=== PATIENT | male | born 1960 | race Caucasian/White ===

== ENCOUNTER 2021-12-30 11:07 | Observation (INO) ==
[2021-12-30] MEDS ORDERED: Iopamidol - 370 500 ML MLS IVP ONE (11:38)
[2021-12-30 12:01] LABS: Basophils % 0.6 %; Hemoglobin 13.3 g/dL (12.9-16.9)
[2021-12-30 12:03] LABS: Basophils # 0.1 K/mcL (0.0-0.2); Eosinophils # 0.1 K/mcL (0.0-0.6); Eosinophils % 0.7 %; Hematocrit 36.1 % (37.5-50.1); Immature Granulocytes % 0.5 % (0-4); Lymphocytes # 1.2 K/mcL (0.6-4.6); Lymphocytes % 12.5 %; Mean Corpuscular HGB Conc 36.8 g/dL (31.6-35.5); Mean Corpuscular Hemoglobin 30.6 pg (28.0-33.3); Mean Platelet Volume 11.5 fL (9.4-12.4); Monocytes # 0.9 K/mcL (0.0-1.3); Neutrophils # 7.4 K/mcL (1.6-8.9); Platelet Count 332 K/mcL (140-400); Red Blood Count 4.35 M/mcL (4.19-5.50); Red Cell Distribution Width 18.1 % (11.5-14.5); Segmented Neutrophils % 76.7 %; White Blood Count 9.7 K/mcL (4.3-11.1)
[2021-12-30 12:11] LABS: INR 1.1; Prothrombin Time 11.8 Seconds (9.4-12.1)
[2021-12-30 12:13] LABS: Activated Partial Thrombo Time 35.2 Seconds (26.0-36.0)
[2021-12-30 12:25] LABS: Anisocytosis 1+ (Not Present); Target Cells 1+ (Not Present)
[2021-12-30 13:01] LABS: Alanine Aminotransferase 86 Units/L (7-52); Albumin 4.3 g/dL (3.5-5.7); Albumin/Globulin Ratio 1.5 (1.1-2.2); Alkaline Phosphatase 375 Units/L (34-104); Aspartate Amino Transferase 82 Units/L (13-39); BUN/Creatinine Ratio 18 (6-26); Bilirubin,Total > 30.0 mg/dL (0.3-1.0); Blood Urea Nitrogen 16 mg/dL (8-23); Carbon Dioxide 27 mEq/L (23-29); Chloride 99 mEq/L (98-107); Globulin 2.8 g/dL (2.4-3.5); Glucose 95 mg/dL (70-105); Lipase 108 Units/L (11-82); Osmolality,Calculated 277 (280-300); Potassium 4.1 mEq/L (3.5-5.1); Sodium 133 mEq/L (136-145); Total Protein 7.1 g/dL (6.4-8.9); eGFR For African Americans > 60 (> 60); eGFR For Non-African Americans > 60 (> 60)
[2021-12-30] MEDS ORDERED: Gadolinium Contrast Agent (WT Based) IV PRN (15:20)
[2021-12-30] MEDS ORDERED: Naloxone 0.4 MG/ML INJ IVP PRN (15:39)
[2021-12-30] MEDS ORDERED: Ondansetron ODT 4 MG TAB.RAPDIS SL PRN (15:39)
[2021-12-30] MEDS ORDERED: Melatonin 3 MG TABLET PO PRN (15:39)
[2021-12-30] MEDS ORDERED: Dextrose Gel 15 GM/37.5 ML TUBE PO PRN ×2 (15:49)
[2021-12-30] MEDS ORDERED: *HR* HYDROcodone/Acet 5/325 mg TABLET PO PRN (16:22)
[2021-12-30] MEDS ORDERED: Acetaminophen 325 MG TABLET PO PRN (16:22)
[2021-12-30 16:49] LABS: Bilirubin,Direct 15.6 mg/dL (0.0-0.2); Magnesium 2.1 mg/dL (1.6-2.6); Phosphorous 2.9 mg/dL (2.7-4.5)
[2021-12-30] MEDS: 0.9 % Sodium Chloride 1,000 ML IVC SCH (18:31)
[2021-12-30 19:27] LABS: Bacteria,Urine Few per hpf (None-Few); Bilirubin,Urine Large (Negative); Blood,Urine Small (Negative); Clarity,Urine Clear (Clear); Color,Urine Dark-Yellow (Yellow); Glucose,Urine (UA) Normal (Normal); Ketones,Urine Negative (Negative); Leukocyte Esterase,Urine Negative (Negative); Mucus,Urine Few per lpf (None-Few); Nitrite,Urine Negative (Negative); Protein,Urine 30 mg/dL (Neg-Trace); Specific Gravity,Urine > 1.030 (1.010-1.025); Urobilinogen,Urine Normal (Normal); WBC,Urine 15-30 per hpf (0-3)
[2021-12-30] MEDS: *HR* Heparin 5,000 UNIT/ML VIAL SQ SCH (21:11)
[2021-12-31 03:54] LABS: BUN/Creatinine Ratio 20 (6-26); Blood Urea Nitrogen 17 mg/dL (8-23); Calcium 8.8 mg/dL (8.6-10.3); Carbon Dioxide 24 mEq/L (23-29); Chloride 100 mEq/L (98-107); Chol/HDL Ratio 29.2 (0-4.9); Glucose 85 mg/dL (70-105); Osmolality,Calculated 281 (280-300); Potassium 3.6 mEq/L (3.5-5.1); Sodium 135 mEq/L (136-145); eGFR For African Americans > 60 (> 60); eGFR For Non-African Americans > 60 (> 60)
[2021-12-31 03:55] LABS: Estimated Average Glucose 103 mg/dl; Hemoglobin A1C 5.2 %
[2021-12-31 03:59] LABS: Basophils # 0.1 K/mcL (0.0-0.2); Basophils % 0.6 %; Eosinophils # 0.2 K/mcL (0.0-0.6); Eosinophils % 2.1 %; Hemoglobin 11.6 g/dL (12.9-16.9); Immature Granulocytes % 0.3 % (0-4); Lymphocytes # 1.5 K/mcL (0.6-4.6); Lymphocytes % 15.2 %; Mean Corpuscular HGB Conc 37.4 g/dL (31.6-35.5); Mean Corpuscular Hemoglobin 30.5 pg (28.0-33.3); Mean Corpuscular Volume 81.6 fL (83.0-100.0); Mean Platelet Volume 12.4 fL (9.4-12.4); Monocytes # 1.1 K/mcL (0.0-1.3); Monocytes % 10.9 %; Neutrophils # 6.9 K/mcL (1.6-8.9); Platelet Count 290 K/mcL (140-400); Red Cell Distribution Width 17.8 % (11.5-14.5); Segmented Neutrophils % 70.9 %; White Blood Count 9.7 K/mcL (4.3-11.1)
[2021-12-31] MEDS: 0.9 % Sodium Chloride 1,000 ML IVC SCH (05:12)
[2021-12-31] MEDS: *HR* Heparin 5,000 UNIT/ML VIAL SQ SCH ×3 (05:14→22:57)
[2021-12-31 10:29] LABS: Alanine Aminotransferase 69 Units/L (7-52); Albumin 3.6 g/dL (3.5-5.7); Albumin/Globulin Ratio 1.6 (1.1-2.2); Alkaline Phosphatase 314 Units/L (34-104); Aspartate Amino Transferase 64 Units/L (13-39); Bilirubin,Direct 13.5 mg/dL (0.0-0.2); Bilirubin,Indirect 12.9 mg/dL (0.0-1.0); Bilirubin,Total 26.4 mg/dL (0.3-1.0); Globulin 2.3 g/dL (2.4-3.5); Total Protein 5.9 g/dL (6.4-8.9)
[2021-12-31] MEDS: Ringers Solution, Lactated 1,000 ML IVC SCH ×2 (13:18→18:08)
[2021-12-31] MEDS ORDERED: *HR* FentaNYL (PF) 100 MCG/2 ML VIAL ONE (13:35)
[2021-12-31] MEDS ORDERED: *HR* Propofol 200 MG/20 ML VIAL IVP ONE ×2 (13:36→16:43)
[2021-12-31] MEDS ORDERED: Lidocaine -MPF 2% 2 ML VIAL ONE (13:36)
[2021-12-31] MEDS ORDERED: *HR* Succinylcholine 200 MG/10 ML VIAL IVP ONE (13:37)
[2021-12-31] MEDS ORDERED: Ondansetron 4 MG/2 ML VIAL ONE (13:38)
[2021-12-31] MEDS ORDERED: Lidocaine HCL 4 ML Topical Solution (Laryng-O-Jet Kit Sterile Pak) TP ONE (13:39)
[2021-12-31] MEDS ORDERED: Indomethacin 50 MG SUPP.RECT RC ONE (16:12)
[2022-01-01] MEDS: *HR* Heparin 5,000 UNIT/ML VIAL SQ SCH (05:53)
[2022-01-01] MEDS: Ringers Solution, Lactated 1,000 ML IVC SCH ×2 (08:28→08:30)
[2022-01-01 08:34] VITALS: BP 132/65; PULSE 65; TEMP 97.9; O2SAT 97
[2022-01-01] MEDS ORDERED: lisinopriL 10 MG TABLET PO SCH (09:00)
[2022-01-01 09:23] LABS: Alanine Aminotransferase 60 Units/L (7-52); Albumin 3.3 g/dL (3.5-5.7); Albumin/Globulin Ratio 1.3 (1.1-2.2); Alkaline Phosphatase 328 Units/L (34-104); Aspartate Amino Transferase 55 Units/L (13-39); BUN/Creatinine Ratio 13 (6-26); Bilirubin,Total 25.9 mg/dL (0.3-1.0); Blood Urea Nitrogen 13 mg/dL (8-23); Calcium 9.1 mg/dL (8.6-10.3); Carbon Dioxide 28 mEq/L (23-29); Chloride 100 mEq/L (98-107); Globulin 2.5 g/dL (2.4-3.5); Glucose 89 mg/dL (70-105); Osmolality,Calculated 280 (280-300); Potassium 3.6 mEq/L (3.5-5.1); Sodium 135 mEq/L (136-145); Total Protein 5.8 g/dL (6.4-8.9); eGFR For African Americans > 60 (> 60); eGFR For Non-African Americans > 60 (> 60)
== END 2022-01-01 11:20 | disposition home or self-care (01) ==
LOC: EMEROOARM 11:07 → 3ANU 11:07 → SUATTDRO 16:19 → 3ANU 17:20
PROVIDERS: ADMIT Internal Medicine; ATTEND Student in an Organized Health Care Education/Training Program
PROC: ENDOEUS (2021-12-31 11:20)

== ENCOUNTER 2022-05-24 12:59 | Inpatient (IN) ==
[2022-05-24 14:04] LABS: Bacteria,Urine Few per hpf (None-Few); Bilirubin,Urine Negative (Negative); Blood,Urine Moderate (Negative); Clarity,Urine Clear (Clear); Color,Urine Yellow (Yellow); Glucose,Urine (UA) Normal (Normal); Ketones,Urine Negative (Negative); Leukocyte Esterase,Urine Negative (Negative); Mucus,Urine Few per lpf (None-Few); Nitrite,Urine Negative (Negative); PH,Urine 6.5 pH Units (5.0-8.0); Protein,Urine 50 mg/dL (Neg-Trace); RBC,Urine 30-50 per hpf (0-3); Red Cell Distribution Width 14.8 % (11.5-14.5); Specific Gravity,Urine 1.023 (1.010-1.025); Squamous Epithelial Cell,Urine Few per hpf (None-Few); Urobilinogen,Urine >=8.0 mg/dL (Normal); WBC,Urine 0-3 per hpf (0-3)
[2022-05-24 14:06] LABS: Hemoglobin 12.4 g/dL (12.9-16.9); Mean Corpuscular HGB Conc 32.6 g/dL (31.6-35.5); Mean Corpuscular Hemoglobin 28.8 pg (28.0-33.3); Mean Corpuscular Volume 88.2 fL (83.0-100.0); Mean Platelet Volume 10.2 fL (9.4-12.4); Platelet Count 375 K/mcL (140-400); Red Blood Count 4.31 M/mcL (4.19-5.50); White Blood Count 25.3 K/mcL (4.3-11.1)
[2022-05-24 14:37] LABS: Lymphocytes # 1.8 K/mcL (0.6-4.6); Monocytes # 0.8 K/mcL (0.0-1.3); Neutrophils # 22.8 K/mcL (1.6-8.9); Platelet Estimate Normal (Normal); Toxic Granulation Present (Not Present)
[2022-05-24 15:01] LABS: Alanine Aminotransferase 14 Units/L (7-52); Albumin 3.6 g/dL (3.5-5.7); Albumin/Globulin Ratio 0.9 (1.1-2.2); Alkaline Phosphatase 117 Units/L (34-104); Amylase 758 Units/L (29-103); Aspartate Amino Transferase 14 Units/L (13-39); BUN/Creatinine Ratio 16 (6-26); Bilirubin,Direct 0.3 mg/dL (0.0-0.2); Bilirubin,Indirect 0.6 mg/dL (0.0-1.0); Bilirubin,Total 0.9 mg/dL (0.3-1.0); Blood Urea Nitrogen 13 mg/dL (8-23); Calcium 9.2 mg/dL (8.6-10.3); Carbon Dioxide 25 mEq/L (23-29); Chloride 95 mEq/L (98-107); Globulin 4.2 g/dL (2.4-3.5); Glucose 146 mg/dL (70-105); Lipase > 1800 Units/L (11-82); Osmolality,Calculated 279 (280-300); Potassium 4.1 mEq/L (3.5-5.1); Sodium 133 mEq/L (136-145); Total Protein 7.8 g/dL (6.4-8.9)
[2022-05-24] MEDS ORDERED: Iopamidol - 370 500 ML MLS IVP ONE (16:44)
[2022-05-24] MEDS ORDERED: Morphine Sulfate 2 MG/ML SYRINGE IVP ONE (16:45)
[2022-05-24] MEDS ORDERED: Ondansetron 4 MG/2 ML VIAL IVP ONE (16:45)
[2022-05-24] MEDS ORDERED: 0.9 % Sodium Chloride 1,000 ML IVC ONE (16:46)
[2022-05-24] MEDS ORDERED: Ketorolac 30 MG/ML VIAL IVP ONE (17:56)
[2022-05-24] MEDS ORDERED: *HR* HYDROmorphone (PF) 1 MG/ML SYRINGE IVP ONE (17:57)
[2022-05-24] MEDS ORDERED: Ondansetron 4 MG/2 ML VIAL IVP PRN (20:40)
[2022-05-24] MEDS ORDERED: Melatonin 3 MG TABLET PO PRN (20:40)
[2022-05-24] MEDS ORDERED: Naloxone 0.4 MG/ML INJ IVP PRN (20:40)
[2022-05-24] MEDS: Ringers Solution, Lactated 1,000 ML IVC SCH (21:39)
[2022-05-24] MEDS: Piperacillin/Tazobactam 3.375 GM in 0.9 % Sodium Chloride Mini Bag 100 ML IVPB SCH (21:45)
[2022-05-25] MEDS: Ringers Solution, Lactated 1,000 ML IVC SCH (03:36)
[2022-05-25] MEDS ORDERED: *HR* HYDROmorphone (PF) 1 MG/ML SYRINGE IVP ONE (04:27)
[2022-05-25] MEDS: *HR* Heparin 5,000 UNIT/ML VIAL SQ SCH ×2 (04:36→17:31)
[2022-05-25 05:05] LABS: Basophils % 0.2 %; Eosinophils % 0.1 %; Hematocrit 34.3 % (37.5-50.1); Hemoglobin 11.3 g/dL (12.9-16.9); Immature Granulocytes % 0.6 % (0-4); Lymphocytes # 2.4 K/mcL (0.6-4.6); Lymphocytes % 10.2 %; Mean Corpuscular HGB Conc 32.9 g/dL (31.6-35.5); Mean Corpuscular Volume 88.2 fL (83.0-100.0); Mean Platelet Volume 10.5 fL (9.4-12.4); Monocytes # 2.1 K/mcL (0.0-1.3); Monocytes % 9.2 %; Neutrophils # 18.5 K/mcL (1.6-8.9); Platelet Count 357 K/mcL (140-400); Red Blood Count 3.89 M/mcL (4.19-5.50); Red Cell Distribution Width 15.1 % (11.5-14.5); Segmented Neutrophils % 79.7 %; White Blood Count 23.2 K/mcL (4.3-11.1)
[2022-05-25 05:26] LABS: Alanine Aminotransferase 11 Units/L (7-52); Albumin 3.1 g/dL (3.5-5.7); Albumin/Globulin Ratio 0.9 (1.1-2.2); Alkaline Phosphatase 91 Units/L (34-104); Aspartate Amino Transferase 10 Units/L (13-39); BUN/Creatinine Ratio 16 (6-26); Bilirubin,Total 0.7 mg/dL (0.3-1.0); Blood Urea Nitrogen 12 mg/dL (8-23); Calcium 8.5 mg/dL (8.6-10.3); Carbon Dioxide 28 mEq/L (23-29); Chloride 101 mEq/L (98-107); Globulin 3.4 g/dL (2.4-3.5); Glucose 99 mg/dL (70-105); Osmolality,Calculated 284 (280-300); Phosphorous 3.2 mg/dL (2.7-4.5); Potassium 3.6 mEq/L (3.5-5.1); Sodium 137 mEq/L (136-145); Total Protein 6.5 g/dL (6.4-8.9)
[2022-05-25] MEDS ORDERED: 0.9 % Sodium Chloride 1,000 ML IVC SCH (08:00)
[2022-05-25] MEDS: Piperacillin/Tazobactam 3.375 GM in 0.9 % Sodium Chloride Mini Bag 100 ML IVPB SCH ×3 (08:34→23:18)
[2022-05-25] MEDS: 0.9 % Sodium Chloride 1,000 ML IVC SCH ×2 (16:42→23:20)
[2022-05-25] MEDS: Mirtazapine 15 MG TABLET PO SCH (21:56)
[2022-05-26] MEDS ORDERED: Ibuprofen 600 MG TABLET PO ONE (01:24)
[2022-05-26 02:07] LABS: Immature Granulocytes % 0.8 % (0-4)
[2022-05-26 02:08] LABS: Basophils % 0.1 %; Chol/HDL Ratio 5.1 (0-4.9); Lymphocytes # 1.6 K/mcL (0.6-4.6); Lymphocytes % 5.9 %; Mean Corpuscular HGB Conc 33.3 g/dL (31.6-35.5); Mean Corpuscular Hemoglobin 28.3 pg (28.0-33.3); Mean Corpuscular Volume 84.9 fL (83.0-100.0); Monocytes % 7.3 %; Neutrophils # 23.8 K/mcL (1.6-8.9); Platelet Count 346 K/mcL (140-400); Red Blood Count 3.18 M/mcL (4.19-5.50); Segmented Neutrophils % 85.9 %; White Blood Count 27.7 K/mcL (4.3-11.1)
[2022-05-26 02:10] LABS: Alanine Aminotransferase 9 Units/L (7-52); Albumin 2.6 g/dL (3.5-5.7); Albumin/Globulin Ratio 0.9 (1.1-2.2); Alkaline Phosphatase 79 Units/L (34-104); Aspartate Amino Transferase 9 Units/L (13-39); BUN/Creatinine Ratio 18 (6-26); Bilirubin,Total 0.9 mg/dL (0.3-1.0); Blood Urea Nitrogen 12 mg/dL (8-23); Calcium 7.7 mg/dL (8.6-10.3); Carbon Dioxide 26 mEq/L (23-29); Chloride 101 mEq/L (98-107); Glucose 92 mg/dL (70-105); Magnesium 1.6 mg/dL (1.6-2.6); Osmolality,Calculated 277 (280-300); Phosphorous 3.4 mg/dL (2.7-4.5); Sodium 134 mEq/L (136-145); Total Protein 5.6 g/dL (6.4-8.9)
[2022-05-26] MEDS ORDERED: Morphine Sulfate 2 MG/ML SYRINGE IVP ONE (06:06)
[2022-05-26] MEDS: 0.9 % Sodium Chloride 1,000 ML IVC SCH ×3 (06:24→14:56)
[2022-05-26] MEDS: *HR* Heparin 5,000 UNIT/ML VIAL SQ SCH (06:31)
[2022-05-26] MEDS: Piperacillin/Tazobactam 3.375 GM in 0.9 % Sodium Chloride Mini Bag 100 ML IVPB SCH ×2 (09:21→14:55)
[2022-05-26] MEDS ORDERED: 0.9 % Sodium Chloride 500 ML ONE (13:07)
[2022-05-26] MEDS ORDERED: Lidocaine/EPI 1:100k 1% 50 ML VIAL ONE (13:07)
[2022-05-26] MEDS ORDERED: Heparin 1,000 UNITS/500 mL 500 ML ONE (13:07)
[2022-05-26] MEDS ORDERED: Iopamidol - 370 500 ML MLS IVP ONE (13:09)
[2022-05-26] MEDS: Ringers Solution, Lactated 1,000 ML IVC SCH (14:14)
[2022-05-26] MEDS ORDERED: Iopamidol - 300 50 ML VIAL IVP ONE ×2 (14:16→14:17)
[2022-05-26] MEDS: Mirtazapine 15 MG TABLET PO SCH (19:35)
[2022-05-27] MEDS: Piperacillin/Tazobactam 3.375 GM in 0.9 % Sodium Chloride Mini Bag 100 ML IVPB SCH ×3 (01:04→20:10)
[2022-05-27] MEDS: 0.9 % Sodium Chloride 1,000 ML IVC SCH ×2 (04:58→16:52)
[2022-05-27 05:09] LABS: Mean Platelet Volume 10.4 fL (9.4-12.4)
[2022-05-27 05:10] LABS: Hematocrit 23.1 % (37.5-50.1); Hemoglobin 7.9 g/dL (12.9-16.9); Lymphocytes # 1.5 K/mcL (0.6-4.6); Mean Corpuscular HGB Conc 34.2 g/dL (31.6-35.5); Mean Corpuscular Hemoglobin 29.6 pg (28.0-33.3); Mean Corpuscular Volume 86.5 fL (83.0-100.0); Platelet Count 404 K/mcL (140-400); Red Blood Count 2.67 M/mcL (4.19-5.50); Red Cell Distribution Width 15.4 % (11.5-14.5)
[2022-05-27 05:13] LABS: White Blood Count 36.2 K/mcL (4.3-11.1)
[2022-05-27] MEDS: Mirtazapine 15 MG TABLET PO SCH ×2 (05:17→20:27)
[2022-05-27 05:23] LABS: BUN/Creatinine Ratio 15 (6-26); Blood Urea Nitrogen 11 mg/dL (8-23); Calcium 7.8 mg/dL (8.6-10.3); Carbon Dioxide 25 mEq/L (23-29); Chloride 102 mEq/L (98-107); Glucose 87 mg/dL (70-105); Magnesium 1.9 mg/dL (1.6-2.6); Osmolality,Calculated 277 (280-300); Phosphorous 3.4 mg/dL (2.7-4.5); Sodium 134 mEq/L (136-145)
[2022-05-27 06:00] LABS: Hypochromasia Present (Not Present); Monocytes # 2.9 K/mcL (0.0-1.3); Neutrophils # 31.9 K/mcL (1.6-8.9); Platelet Estimate Normal (Normal)
[2022-05-27] MEDS: Acetaminophen 325 MG TABLET PO PRN (11:36)
[2022-05-27 12:51] LABS: Immature Reticulocyte % 23.8 % (11.0-38.0); Retculocyte # 0.03 M/mcL (0.05-0.10); Reticulocyte % 1.2 % (1.6-2.8)
[2022-05-27 16:28] LABS: Thyroid Stimulating Hormone 2.921 mcIU/mL (0.340-5.600)
[2022-05-27 16:39] LABS: Folate 6.4 ng/mL (3.0-16.0)
[2022-05-28] MEDS: Piperacillin/Tazobactam 3.375 GM in 0.9 % Sodium Chloride Mini Bag 100 ML IVPB SCH ×4 (01:49→21:07)
[2022-05-28 02:09] LABS: BUN/Creatinine Ratio 14 (6-26); Blood Urea Nitrogen 10 mg/dL (8-23); Calcium 8.1 mg/dL (8.6-10.3); Carbon Dioxide 23 mEq/L (23-29); Chloride 103 mEq/L (98-107); Glucose 86 mg/dL (70-105); Osmolality,Calculated 278 (280-300); Potassium 3.9 mEq/L (3.5-5.1); Sodium 135 mEq/L (136-145)
[2022-05-28 02:20] LABS: Hemoglobin 7.6 g/dL (12.9-16.9); Mean Corpuscular HGB Conc 34.5 g/dL (31.6-35.5); Mean Corpuscular Hemoglobin 29.2 pg (28.0-33.3); Mean Corpuscular Volume 84.6 fL (83.0-100.0); Mean Platelet Volume 10.4 fL (9.4-12.4); Platelet Count 481 K/mcL (140-400); Red Cell Distribution Width 15.5 % (11.5-14.5)
[2022-05-28 02:36] LABS: White Blood Count 45.4 K/mcL (4.3-11.1)
[2022-05-28 03:05] LABS: Lymphocytes # 2.3 K/mcL (0.6-4.6); Monocytes # 3.2 K/mcL (0.0-1.3); Platelet Estimate Normal (Normal)
[2022-05-28] MEDS: Vancomycin 1,250 MG/262.5 ML IV.SOLN IVPB SCH ×2 (08:04→21:10)
[2022-05-28] MEDS: Acetaminophen 325 MG TABLET PO PRN (12:06)
[2022-05-28] MEDS ORDERED: Piperacillin/Tazobactam 3.375 GM in 0.9 % Sodium Chloride Mini Bag 100 ML IVPB SCH (16:00)
[2022-05-28] MEDS: Mirtazapine 15 MG TABLET PO SCH (21:16)
[2022-05-28] MEDS: 0.9 % Sodium Chloride 1,000 ML IVC SCH (21:23)
[2022-05-29] MEDS: Piperacillin/Tazobactam 3.375 GM in 0.9 % Sodium Chloride Mini Bag 100 ML IVPB SCH ×3 (05:31→20:10)
[2022-05-29 07:01] LABS: Basophils % 0.2 %; Lymphocytes % 3.2 %
[2022-05-29 07:03] LABS: Basophils # 0.1 K/mcL (0.0-0.2); Hematocrit 21.2 % (37.5-50.1); Hemoglobin 7.2 g/dL (12.9-16.9); Immature Granulocytes % 1.8 % (0-4); Lymphocytes # 1.5 K/mcL (0.6-4.6); Mean Corpuscular Hemoglobin 28.9 pg (28.0-33.3); Mean Corpuscular Volume 85.1 fL (83.0-100.0); Mean Platelet Volume 10.7 fL (9.4-12.4); Monocytes # 2.5 K/mcL (0.0-1.3); Monocytes % 5.5 %; Neutrophils # 40.5 K/mcL (1.6-8.9); Platelet Count 488 K/mcL (140-400); Red Blood Count 2.49 M/mcL (4.19-5.50); Red Cell Distribution Width 15.8 % (11.5-14.5); Segmented Neutrophils % 89.3 %
[2022-05-29 07:20] LABS: White Blood Count 45.4 K/mcL (4.3-11.1)
[2022-05-29 07:22] LABS: Calcium 7.8 mg/dL (8.6-10.3); Potassium 3.8 mEq/L (3.5-5.1)
[2022-05-29] MEDS: Vancomycin 1,250 MG/262.5 ML IV.SOLN IVPB SCH ×2 (09:44→22:21)
[2022-05-29] MEDS: 0.9 % Sodium Chloride 1,000 ML IVC SCH ×2 (13:47)
[2022-05-29 14:42] LABS: Adenovirus Not Detected (Not Detect); Bordetella Pertussis Not Detected (Not Detect); Chlamydophila pneumoniae Not Detected (Not Detect); Coronavirus 229E Not Detected (Not Detect); Coronavirus HKU1 Not Detected (Not Detect); Coronavirus NL63 Not Detected (Not Detect); Coronavirus OC43 Not Detected (Not Detect); Human Metapneumovirus Not Detected (Not Detect); Human Rhinovirus/Enterovirus Not Detected (Not Detect); Influenza A Subtype 2009 H1 Not Detected (Not Detect); Influenza B Not Detected (Not Detect); Mycoplasma pneumoniae Not Detected (Not Detect); Parainfluenza Virus 1 Not Detected (Not Detect); Parainfluenza Virus 2 Not Detected (Not Detect); Parainfluenza Virus 3 Not Detected (Not Detect); Parainfluenza Virus 4 Not Detected (Not Detect); Respiratory Syncytial Virus Not Detected (Not Detect); SARS-CoV-2 Not Detected (Not Detect)
[2022-05-29] MEDS: Sennosides/Docusate Sodium TABLET PO SCH (20:09)
[2022-05-29] MEDS: Mirtazapine 15 MG TABLET PO SCH (20:09)
[2022-05-30] MEDS: 0.9 % Sodium Chloride 1,000 ML IVC SCH ×3 (01:55→20:30)
[2022-05-30] MEDS: Piperacillin/Tazobactam 3.375 GM in 0.9 % Sodium Chloride Mini Bag 100 ML IVPB SCH ×3 (04:56→20:25)
[2022-05-30 07:50] LABS: Calcium 7.8 mg/dL (8.6-10.3); Potassium 3.8 mEq/L (3.5-5.1)
[2022-05-30 07:54] LABS: Basophils % 0.2 %
[2022-05-30 07:56] LABS: Basophils # 0.1 K/mcL (0.0-0.2); Hematocrit 20.2 % (37.5-50.1); Hemoglobin 6.9 g/dL (12.9-16.9); Immature Granulocytes % 3.9 % (0-4); Lymphocytes % 3.1 %; Mean Corpuscular HGB Conc 34.2 g/dL (31.6-35.5); Mean Corpuscular Hemoglobin 29.7 pg (28.0-33.3); Mean Corpuscular Volume 87.1 fL (83.0-100.0); Mean Platelet Volume 10.8 fL (9.4-12.4); Monocytes # 2.2 K/mcL (0.0-1.3); Platelet Count 480 K/mcL (140-400); Red Blood Count 2.32 M/mcL (4.19-5.50); Red Cell Distribution Width 15.9 % (11.5-14.5); Segmented Neutrophils % 87.8 %
[2022-05-30 08:44] LABS: Lymphocytes # 1.4 K/mcL (0.6-4.6); Neutrophils # 38.2 K/mcL (1.6-8.9); White Blood Count 43.5 K/mcL (4.3-11.1)
[2022-05-30] MEDS: Vancomycin 1,250 MG/262.5 ML IV.SOLN IVPB SCH ×2 (08:57→22:55)
[2022-05-30] MEDS: Sennosides/Docusate Sodium TABLET PO SCH ×2 (08:57→20:24)
[2022-05-30 10:09] LABS: Hypochromasia Present (Not Present); Macrocytosis Present (Not Present); Target Cells 1+ (Not Present)
[2022-05-30 10:10] LABS: Platelet Estimate Increased (Normal)
[2022-05-30] MEDS ORDERED: 0.9 % Sodium Chloride 250 ML ONE (15:15)
[2022-05-30] MEDS: Mirtazapine 15 MG TABLET PO SCH (20:24)
[2022-05-30] MEDS: Acetaminophen 325 MG TABLET PO PRN (20:33)
[2022-05-30 21:02] VITALS: BP 141/83; PULSE 108; TEMP 98.7; O2SAT 94
[2022-05-30] MEDS ORDERED: Morphine Sulfate 2 MG/ML SYRINGE IVP ONE (22:46)
== END 2022-05-31 01:33 | disposition short-term general hospital (02) | DRG 950 ==
LOC: EMEROOARM 12:59 → 3ANU 12:59 → SUATTDRO 20:20 → 3ANU 20:56 → SUATTDRO 05-26 10:07 → 2NENU 05-26 13:27
PROVIDERS: ADMIT Internal Medicine; ATTEND Internal Medicine